=== PATIENT | female | born 1990 | race African-American/Black ===

== ENCOUNTER 2020-01-22 03:39 | Emergency (ER) | payer MEDICARE, OTHER ==
--- NOTE | 2020-01-22 07:57 | RAD ---
Exam: Chest one view HISTORY:Chest pain Comparison: 03/20/2019 FINDINGS: Cardiac silhouette: Normal Aorta: Unremarkable Pulmonary vessels: Normal Costophrenic angles: Clear LUNGS: No masses or consolidation. Pneumothorax: None Osseous abnormalities: None IMPRESSION: No acute cardiopulmonary process.
== END 2020-01-22 04:37 | disposition home or self-care (01) ==
LOC: ERS 03:39
DX: R07.9 Chest pain, unspecified (principal); D50.9 Iron deficiency anemia, unspecified; F41.9 Anxiety disorder, unspecified; F32.9 Major depressive disorder, single episode, unspecified; K50.90 Crohn's disease, unspecified, without complications; Y04.0XXA Assault by unarmed brawl or fight, initial encounter
CPT/HCPCS: 71045; 93005

== ENCOUNTER 2020-04-25 19:18 | Observation (INO) | payer MEDICARE, MEDICAID, OTHER ==
[~2020-04-25 19:18] MED LIST: Iopamidol-370 76% 500 ML 1 ML ONE
[2020-04-25] MEDS ORDERED: Haloperidol Lactate 5 MG/ML VIAL ONE ×3 (19:20→22:18)
[2020-04-25] MEDS ORDERED: Lorazepam 2 MG/ML VIAL ONE ×3 (19:20→23:59)
[2020-04-25] MEDS ORDERED: diphenhydrAMINE 50 MG/ML VIAL ONE (19:20)
[2020-04-25 19:34] LABS: #Basophils 0.1 thou/uL (0.0-0.2); #Eosinphils 0.1 thou/uL (0.0-0.7); #Lymphocytes 3.5 thou/uL (1.20-3.40); #Monocytes 1.4 thou/uL (0.11-0.59); #Neutrophils 5.5 thou/uL (1.40-6.50); %Eosinophils 1.1 % (0.0-10.0); %Lymphocytes 32.9 % (21.0-51.0); %Monocytes 13.1 % (0.0-10.0); %Neutrophils 51.9 % (42.0-75.0); Hemoglobin 11.4 g/dL (12.0-16.0); Mean Corpuscular HGB CONC 31.3 g/dL (32.0-36.0); Mean Corpuscular Hemoglobin 29.4 pg (27.0-31.0); Mean Corpuscular Volume 93.9 fL (78.0-98.0); Mean Platelet Volume 8.1 fL (7.4-10.4); Platelet Count 322 thou/uL (130-400); RBC Distribution Width 14.3 % (11.5-14.5); Red Blood Cell (RBC) Count 3.86 mill/uL (4.20-5.40); White Blood Cell (WBC) Count 10.7 thou/uL (4.8-10.8)
[2020-04-25 19:40] LABS: Albumin 3.6 g/dL (3.5-5.0)
[2020-04-25 19:41] LABS: Chloride 107 mmol/L (98-107); Potassium 3.7 mmol/L (3.5-5.1); Prothrombin Time 13.4 sec (12.0-14.7); Sodium 138 mmol/L (136-145)
[2020-04-25 19:42] LABS: Calcium 8.5 mg/dL (7.8-10.44)
[2020-04-25 19:43] LABS: Globulin 3.4 g/dL (2.4-3.5); Glucose 99 mg/dL (70-105)
[2020-04-25 19:44] LABS: Anion Gap 19 mmol/L (10-20); Bilirubin, Total 0.2 mg/dL (0.2-1.2); Carbon Dioxide 16 mmol/L (22-29)
[2020-04-25 19:46] LABS: Alkaline Phosphatase 64 U/L (40-110); Calc. Creatinine Clearance 0 mL/min (70-130); Estimated GFR-MDRD Greater than 90
[2020-04-25 19:47] LABS: BUN (Urea Nitrogen) 6 mg/dL (7.0-18.7)
[2020-04-25 19:48] LABS: AST (SGOT) 26 U/L (5-34)
[2020-04-25 19:49] LABS: ALT (SGPT) 13 U/L (8-55)
[2020-04-25 19:51] LABS: BHCG - Serum Negative (NEGATIVE); Pregs Control Background? CLEAR/WHITE (CLR/WHITE); Pregs Control Bar Appear? YES (CONTROL BAR)
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
[2020-04-25 20:19] LABS: Alcohol 106 mg/dL (Less than 10)
[2020-04-25 20:22] LABS: Acetaminophen Less than 6.0 mcg/mL (10.0-30.0); Salicylate Less than 8.0 mg/dL (15.0-30.0)
--- NOTE | 2020-04-25 20:36 | RAD ---
2 views right forearm: 04/25/2020 COMPARISON: None HISTORY: Injury, trauma, pain FINDINGS: There is soft tissue irregularity involving the volar aspect of the midforearm on the later al view suggesting laceration. Soft tissue irregularity is seen medially on the frontal view adjacent to the midshaft of the right ulna. No associated foreign body, fracture, or dislocation. IMPRESSION: Findings suggesting a soft tissue injury involving the volar medial aspect of the mid rig ht forearm.
[2020-04-25 20:52] LABS: Bacteria/HPF None Seen HPF (None Seen); Bilirubin Negative (Negative); Blood, Urine Negative (Negative); Clarity Clear (Clear); Glucose, Urine (Dipstick) Normal (Negative); Ketone, Urine Negative (Negative); Leukocyte Negative Leu/uL (Negative); Nitrite Negative (Negative); Protein, Urine (Dipstick) Negative (Neg-Trace); RBC/HPF 0-3 HPF (0-3); Specific Gravity, Urine 1.022 (1.002-1.036); Squamous Epithelial 0-3 HPF (0-3); Urobilinogen Normal mg/dL (Less than 2); WBC/HPF 0-3 HPF (0-3); pH, Urine 6.5 (5.0-9.0)
[2020-04-25 21:08] LABS: Amphetamine Not Detected (NotDetected); Barbiturates Screen Not Detected (NotDetected); Benzodiazepine Screen Not Detected (NotDetected); Cocaine Metabolite Screen Not Detected (NotDetected); Medtox Control Line Valid? VALID (VALID); Medtox Reader # READER 4; Methadone Not Detected (NotDetected); Methamphetamine Not Detected (NotDetected); Opiate Screen Not Detected (NotDetected); Oxycodone Screen Not Detected (NotDetected); Phencyclidine (PCP) Detected (NotDetected); THC/Cannabinoid Screen Detected (NotDetected); Tricyclic Screen Not Detected (NotDetected)
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
[2020-04-25] MEDS ORDERED: Boostrix 0.5 ML VIAL ONE (21:46)
[2020-04-25] MEDS ORDERED: Dextrose 5% in Water 1,000 ML IV PRN (22:32)
[2020-04-25] MEDS ORDERED: Dextrose 50% Abboject 50 ML SYRINGE SLOW IVP PRN (22:32)
[2020-04-25] MEDS ORDERED: Ondansetron PF 4 MG/2 ML Vial IVP PRN (22:32)
[2020-04-25] MEDS ORDERED: Lorazepam 2 MG/ML VIAL SLOW IVP PRN (22:32)
[2020-04-25 23:07] LABS: Lactic Acid 5.2 mmol/L (0.5-2.2)
[2020-04-26] MEDS ORDERED: Ziprasidone 20 MG VIAL IM SCH (01:00)
[2020-04-26 01:25] VITALS: BMI 20.2
[2020-04-26] MEDS: Acetaminophen 500 MG TAB PO SCH ×4 (01:55→23:45)
[2020-04-26] MEDS: Ketorolac Tromethamine 30 MG/ML VIAL IVP SCH ×5 (01:55→23:45)
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
[2020-04-26 10:55] LABS: Hemoglobin 10.6 g/dL (12.0-16.0); Mean Corpuscular HGB CONC 30.6 g/dL (32.0-36.0); Mean Corpuscular Hemoglobin 29.5 pg (27.0-31.0); Mean Corpuscular Volume 96.5 fL (78.0-98.0); Platelet Count 243 thou/uL (130-400); RBC Distribution Width 14.4 % (11.5-14.5)
[2020-04-26 10:56] LABS: #Basophils 0.1 thou/uL (0.0-0.2); #Eosinphils 0.1 thou/uL (0.0-0.7); #Monocytes 1.6 thou/uL (0.11-0.59); #Neutrophils 7.3 thou/uL (1.40-6.50); %Basophils 0.6 % (0.0-1.0); %Eosinophils 0.6 % (0.0-10.0); %Lymphocytes 17.7 % (21.0-51.0); %Monocytes 14.9 % (0.0-10.0); %Neutrophils 66.2 % (42.0-75.0); Manual Diff?? NO; Mean Platelet Volume 8.3 fL (7.4-10.4)
--- NOTE | 2020-04-26 11:17 | EKG ---
Test Reason : Blood Pressure : / mmHG Vent. Rate : 098 BPM Atrial Rate : 098 BPM P-R Int : 120 ms QRS Dur : 078 ms QT Int : 360 ms P-R-T Axes : 063 075 049 degrees QTc Int : 459 ms Normal sinus rhythm Nonspecific T wave abnormality Abnormal ECG Confirmed by JEFF MADDEN M.D. ([id number]) on 04/26/2020 11:17:32 AM Referred By: MAME Confirmed By:JEFF MADDEN M.D.
[2020-04-26] MEDS ORDERED: PHENYLEPHRINE-NS 100 MCG/ML 10 ML SYRINGE ONE (11:31)
[2020-04-26] MEDS ORDERED: Lidocaine 1% PF 5 ML VIAL ONE (11:31)
[2020-04-26] MEDS ORDERED: Ondansetron PF 4 MG/2 ML Vial ONE (11:31)
[2020-04-26] MEDS ORDERED: PROPOFOL 200 MG/20 ML VIAL ONE (11:31)
[2020-04-26] MEDS ORDERED: Dexamethasone 20 MG/5 ML VIAL ONE (11:31)
[2020-04-26 12:37] LABS: SARS-CoV-2 MS2 Positive; SARS-CoV-2 N Gene Negative; SARS-CoV-2 S Gene Negative; SARS-CoV-2 by NAA Not Detected (NotDetected); SARS-CoV-2 orf1ab Negative
[2020-04-26] MEDS ORDERED: Fentanyl 100 MCG/2 ML VIAL ONE (14:57)
[2020-04-26] MEDS ORDERED: Bupivacaine 0.25% HCL 30 ML VIAL ONE (14:59)
[2020-04-26] MEDS ORDERED: Lidocaine 1% w/Epinephrine 1:100K 20 ML VIAL ONE (14:59)
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
[2020-04-26] MEDS: Famotidine 20 MG TAB PO SCH ×2 (15:59→21:02)
[2020-04-26] MEDS: Lactated Ringer's 1,000 ML IV SCH ×2 (15:59→17:24)
[2020-04-26] MEDS ORDERED: Promethazine HCl 25 MG/ML VIAL IM PRN ×2 (17:40→17:43)
[2020-04-26] MEDS ORDERED: Ondansetron HCl/PF 4 MG/2 ML Vial IVP PRN ×2 (17:40→17:43)
[2020-04-26] MEDS ORDERED: Morphine Sulfate 2 MG/ML SYRINGE SLOW IVP PRN (17:40)
[2020-04-26] MEDS ORDERED: Promethazine HCl 25 MG/ML VIAL SLOW IVP PRN ×2 (17:40→17:43)
[2020-04-27] MEDS: Lactated Ringer's 1,000 ML IV SCH ×2 (01:59→09:10)
[2020-04-27 05:33] LABS: #Lymphocytes 1.1 thou/uL (1.20-3.40); #Monocytes 1.2 thou/uL (0.11-0.59); #Neutrophils 9.5 thou/uL (1.40-6.50); %Basophils 0.1 % (0.0-1.0); %Lymphocytes 9.5 % (21.0-51.0); %Monocytes 9.9 % (0.0-10.0); %Neutrophils 80.5 % (42.0-75.0); Hemoglobin 8.7 g/dL (12.0-16.0); Mean Corpuscular HGB CONC 31.4 g/dL (32.0-36.0); Mean Corpuscular Hemoglobin 29.3 pg (27.0-31.0); Mean Corpuscular Volume 93.3 fL (78.0-98.0); Mean Platelet Volume 8.2 fL (7.4-10.4); Platelet Count 236 thou/uL (130-400); RBC Distribution Width 14.3 % (11.5-14.5); Red Blood Cell (RBC) Count 2.97 mill/uL (4.20-5.40); White Blood Cell (WBC) Count 11.8 thou/uL (4.8-10.8)
[2020-04-27] MEDS: Ketorolac Tromethamine 30 MG/ML VIAL IVP SCH (05:57)
[2020-04-27] MEDS: traMADol HCl 50 MG TAB PO PRN ×2 (05:57→11:40)
[2020-04-27] MEDS: Acetaminophen 500 MG TAB PO SCH ×2 (05:57→11:40)
[2020-04-27 06:01] LABS: Anion Gap 11 mmol/L (10-20); BUN (Urea Nitrogen) 7 mg/dL (7.0-18.7); Calc. Creatinine Clearance 93 mL/min (70-130); Calcium 7.5 mg/dL (7.8-10.44); Carbon Dioxide 23 mmol/L (22-29); Chloride 106 mmol/L (98-107); Estimated GFR-MDRD Greater than 90; Glucose 113 mg/dL (70-105); Magnesium 1.7 mg/dL (1.6-2.6); Phosphorus 2.9 mg/dL (2.3-4.7); Potassium 3.6 mmol/L (3.5-5.1); Sodium 136 mmol/L (136-145)
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
[2020-04-27] MEDS ORDERED: Ibuprofen 600 MG TAB PO PRN (08:35)
[2020-04-27] MEDS: Famotidine 20 MG TAB PO SCH (08:59)
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
[2020-04-27 16:08] VITALS: BP 114/68; TEMP 97.5
== END 2020-04-27 16:35 | disposition home or self-care (01) ==
LOC: ERS 19:18 → SJJU 22:46
PROVIDERS: ADMIT Surgery; ATTEND Surgery
PROC: 03LB0ZZ Occlusion of Right Radial Artery, Open Approach (ICD-10-PCS; principal; 2020-04-25)
PROC: 0LQ50ZZ Repair Right Lower Arm and Wrist Tendon, Open Approach (ICD-10-PCS; 2020-04-25)
PROC: 0LQ50ZZ Repair Right Lower Arm and Wrist Tendon, Open Approach (ICD-10-PCS; 2020-04-25)
PROC: 0LQ50ZZ Repair Right Lower Arm and Wrist Tendon, Open Approach (ICD-10-PCS; 2020-04-25)
DX: S56.221A Laceration of other flexor muscle, fascia and tendon at forearm level, right arm, initial encounter (principal); S55.111A Laceration of radial artery at forearm level, right arm, initial encounter; F19.129 Other psychoactive substance abuse with intoxication, unspecified; K50.90 Crohn's disease, unspecified, without complications; Z79.2 Long term (current) use of antibiotics; Z90.49 Acquired absence of other specified parts of digestive tract; Z20.828 Contact with and (suspected) exposure to other viral communicable diseases; W22.8XXA Striking against or struck by other objects, initial encounter; V89.2XXA Person injured in unspecified motor-vehicle accident, traffic, initial encounter
CPT/HCPCS: 25260 ×3; 37618; 51701; 70450; 71260; 72125; 73090; 74177; 76000; 80048; 80306; 80307; 81001; 82962; 83605; 83735; 84100; 84703; 85025 ×2; 85610; 85730; 86850; 86900; 86901; 90471; 90715; 93005 ×2; 96361; 96365; 96372; 96375 ×2; 96376 ×3; 97139; 99285; G0378 ×3; U0003; 36415; 36416; 80053; 84443; 87635; 93010; J0690; J1100; J1200; J1630; J1885; J2060; J2405; J2704; J3010; Q9967; S0020

== ENCOUNTER 2020-05-14 23:29 | Emergency (ER) | payer MEDICARE, MEDICAID | END 2020-05-15 00:18 | disposition home or self-care (01) | LOC: ERS 23:29 | DX: F10.129 Alcohol abuse with intoxication, unspecified (principal); S51.811D Laceration without foreign body of right forearm, subsequent encounter; W22.8XXD Striking against or struck by other objects, subsequent encounter ==

== ENCOUNTER 2020-08-18 22:46 | Emergency (ER) | payer MEDICARE, MEDICAID ==
[2020-08-19 06:58] LABS: SARS-CoV-2 MS2 Positive; SARS-CoV-2 N Gene Negative; SARS-CoV-2 S Gene Negative; SARS-CoV-2 by NAA Not Detected (NotDetected); SARS-CoV-2 orf1ab Negative
== END 2020-08-18 23:45 | disposition home or self-care (01) ==
LOC: ERS 22:46
DX: Z20.822 Contact with and (suspected) exposure to COVID-19 (principal); F17.210 Nicotine dependence, cigarettes, uncomplicated
CPT/HCPCS: 99283; U0003; 87635

== ENCOUNTER 2021-01-17 19:20 | Emergency (ER) | payer MEDICARE, MEDICAID | END 2021-01-17 20:22 | LOC: ERS 19:20 | DX: F16.90 Hallucinogen use, unspecified, uncomplicated (principal); K50.90 Crohn's disease, unspecified, without complications; F17.210 Nicotine dependence, cigarettes, uncomplicated | CPT/HCPCS: 99284 ==

== ENCOUNTER 2022-02-01 06:54 | Emergency (ER) | payer MEDICAID, MEDICARE ==
[2022-02-01] MEDS ORDERED: diphenhydrAMINE 50 MG/ML VIAL ONE (08:19)
[2022-02-01] MEDS ORDERED: Metoclopramide HCl 10 MG/2 ML VIAL ONE (08:19)
[2022-02-01] MEDS ORDERED: Ketorolac Tromethamine 30 MG/ML VIAL ONE (08:19)
[2022-02-01] MEDS ORDERED: Acetaminophen 500 MG TAB ONE (09:44)
== END 2022-02-01 10:20 | disposition home or self-care (01) ==
LOC: ERS 06:54
DX: R51.9 Headache, unspecified (principal); F17.210 Nicotine dependence, cigarettes, uncomplicated
CPT/HCPCS: 96374; 96375; J1200; J1885; J2765

== ENCOUNTER 2022-03-21 13:26 | Emergency (ER) | payer MEDICARE, MEDICAID ==
[2022-03-21 14:11] LABS: #Eosinphils 0.2 thou/uL (0.0-0.7); #Lymphocytes 2.1 thou/uL (1.20-3.40); #Monocytes 0.5 thou/uL (0.11-0.59); #Neutrophils 2.9 thou/uL (1.40-6.50); %Basophils 0.2 % (0.0-1.0); %Eosinophils 2.6 % (0.0-10.0); %Lymphocytes 37.4 % (21.0-51.0); %Monocytes 8.9 % (0.0-10.0); %Neutrophils 50.9 % (42.0-75.0); Hemoglobin 12.1 g/dL (12.0-16.0); Mean Corpuscular HGB CONC 32.4 g/dL (32.0-36.0); Mean Corpuscular Hemoglobin 29.5 pg (27.0-31.0); Mean Corpuscular Volume 90.9 fL (78.0-98.0); Mean Platelet Volume 7.5 fL (7.4-10.4); Platelet Count 357 thou/uL (130-400); RBC Distribution Width 14.9 % (11.5-14.5); White Blood Cell (WBC) Count 5.7 thou/uL (4.8-10.8)
[2022-03-21 14:19] LABS: BHCG - Serum Negative (NEGATIVE); Pregs Control Background? CLEAR/WHITE (CLR/WHITE); Pregs Control Bar Appear? YES (CONTROL BAR)
[2022-03-21 14:35] LABS: Bilirubin Negative (Negative); Blood, Urine Negative (Negative); Clarity Clear (Clear); Glucose, Urine (Dipstick) Normal (Negative); Ketone, Urine Negative (Negative); Leukocyte Negative Leu/uL (Negative); Nitrite Negative (Negative); Protein, Urine (Dipstick) Negative (Neg-Trace); Specific Gravity, Urine 1.008 (1.002-1.036); Urobilinogen Normal mg/dL (Less than 2); pH, Urine 5.5 (5.0-9.0)
[2022-03-21 14:39] LABS: Acetaminophen Less than 10.0 mcg/mL (10.0-30.0); Alcohol 84 mg/dL (Less than 10); CK (CPK) 53 U/L (29-168); Salicylate Less than 8.0 mg/dL (15.0-30.0)
[2022-03-21 14:40] LABS: ALT (SGPT) 8 U/L (8-55); AST (SGOT) 17 U/L (5-34); Albumin 3.7 g/dL (3.5-5.0); Alkaline Phosphatase 72 U/L (40-110); Anion Gap 14 mmol/L (10-20); BUN (Urea Nitrogen) 9 mg/dL (7.0-18.7); Bilirubin, Total 0.2 mg/dL (0.2-1.2); Calc. Creatinine Clearance 0 mL/min (70-130); Calcium 9.1 mg/dL (7.8-10.44); Carbon Dioxide 20 mmol/L (22-29); Chloride 106 mmol/L (98-107); Estimated GFR 103; Globulin 3.5 g/dL (2.4-3.5); Glucose 60 mg/dL (70-105); Potassium 3.1 mmol/L (3.5-5.1); Protein, Total 7.2 g/dL (6.0-8.3); Sodium 137 mmol/L (136-145)
[2022-03-21 14:41] LABS: Pregnancy Test - Urine (BHCG) Negative (Negative); Pregu Control Background? CLEAR/WHITE (CLR/WHITE); Pregu Control Bar Appear? YES (CONTROL BAR); Specific Gravity 1.008 (1.002-1.036)
[2022-03-21 14:51] LABS: Amphetamine Detected (NotDetected); Barbiturates Screen Not Detected (NotDetected); Benzodiazepine Screen Not Detected (NotDetected); Cocaine Metabolite Screen Not Detected (NotDetected); Methadone Not Detected (NotDetected); Methamphetamine Detected (NotDetected); Opiate Screen Not Detected (NotDetected); Oxycodone Screen Not Detected (NotDetected); Phencyclidine (PCP) Detected (NotDetected); THC/Cannabinoid Screen Detected (NotDetected); Tricyclic Screen Not Detected (NotDetected)
== END 2022-03-21 16:04 | disposition home or self-care (01) ==
LOC: ERS 13:26
DX: F10.129 Alcohol abuse with intoxication, unspecified (principal); Y90.4 Blood alcohol level of 80-99 mg/100 ml; F12.10 Cannabis abuse, uncomplicated; F16.10 Hallucinogen abuse, uncomplicated; F15.10 Other stimulant abuse, uncomplicated; R41.82 Altered mental status, unspecified; K50.90 Crohn's disease, unspecified, without complications; F17.210 Nicotine dependence, cigarettes, uncomplicated
CPT/HCPCS: 36415; 51701; 80053; 80306; 80307; 81003; 81025; 82550; 84703; 85025; 93005

== ENCOUNTER 2022-04-13 23:18 | Emergency (ER) | payer MEDICARE, OTHER ==
[2022-04-14 01:00] LABS: #Basophils 0.1 thou/uL (0.0-0.2); #Eosinphils 0.1 thou/uL (0.0-0.7); #Monocytes 0.9 thou/uL (0.11-0.59); #Neutrophils 4.6 thou/uL (1.40-6.50); %Basophils 0.8 % (0.0-1.0); %Eosinophils 1.8 % (0.0-10.0); %Lymphocytes 26.2 % (21.0-51.0); %Neutrophils 59.2 % (42.0-75.0); Hemoglobin 11.8 g/dL (12.0-16.0); Mean Corpuscular Hemoglobin 29.9 pg (27.0-31.0); Mean Corpuscular Volume 90.5 fL (78.0-98.0); Mean Platelet Volume 7.8 fL (7.4-10.4); Platelet Count 328 thou/uL (130-400); RBC Distribution Width 14.3 % (11.5-14.5); Red Blood Cell (RBC) Count 3.93 mill/uL (4.20-5.40); White Blood Cell (WBC) Count 7.8 thou/uL (4.8-10.8)
[2022-04-14 01:04] LABS: BHCG - Serum Negative (NEGATIVE); Pregs Control Background? CLEAR/WHITE (CLR/WHITE); Pregs Control Bar Appear? YES (CONTROL BAR)
[2022-04-14 01:22] LABS: Acetaminophen Less than 10.0 mcg/mL (10.0-30.0); Alcohol 14 mg/dL (Less than 10); CK (CPK) 131 U/L (29-168); Magnesium 1.8 mg/dL (1.6-2.6); Salicylate Less than 8.0 mg/dL (15.0-30.0)
[2022-04-14 01:24] LABS: ALT (SGPT) 11 U/L (8-55); AST (SGOT) 18 U/L (5-34); Albumin 3.8 g/dL (3.5-5.0); Alkaline Phosphatase 67 U/L (40-110); Anion Gap 17 mmol/L (10-20); BUN (Urea Nitrogen) 13 mg/dL (7.0-18.7); Bilirubin, Total 0.4 mg/dL (0.2-1.2); Calc. Creatinine Clearance 0 mL/min (70-130); Carbon Dioxide 22 mmol/L (22-29); Chloride 104 mmol/L (98-107); Estimated GFR 83; Globulin 3.5 g/dL (2.4-3.5); Glucose 85 mg/dL (70-105); Lipase 23 U/L (8-78); Potassium 3.7 mmol/L (3.5-5.1); Protein, Total 7.3 g/dL (6.0-8.3); Sodium 139 mmol/L (136-145)
== END 2022-04-14 07:25 | disposition home or self-care (01) ==
LOC: ERS 23:18
DX: F19.10 Other psychoactive substance abuse, uncomplicated (principal); F17.210 Nicotine dependence, cigarettes, uncomplicated
CPT/HCPCS: 70450; 71045; 80053; 80307; 82550; 83690; 83735; 83880; 84443; 84484; 84703; 85025; 93005

== ENCOUNTER 2022-05-22 12:24 | Emergency (ER) | payer MEDICARE, OTHER ==
[2022-05-22 13:37] LABS: #Eosinphils 0.1 thou/uL (0.0-0.7); #Lymphocytes 1.6 thou/uL (1.20-3.40); #Monocytes 0.7 thou/uL (0.11-0.59); #Neutrophils 2.7 thou/uL (1.40-6.50); %Basophils 0.5 % (0.0-1.0); %Eosinophils 1.7 % (0.0-10.0); %Lymphocytes 31.8 % (21.0-51.0); %Monocytes 13.3 % (0.0-10.0); %Neutrophils 52.7 % (42.0-75.0); Hemoglobin 10.4 g/dL (12.0-16.0); Mean Corpuscular HGB CONC 30.8 g/dL (32.0-36.0); Mean Corpuscular Hemoglobin 28.6 pg (27.0-31.0); Mean Corpuscular Volume 92.6 fL (78.0-98.0); Mean Platelet Volume 7.4 fL (7.4-10.4); Platelet Count 344 thou/uL (130-400); RBC Distribution Width 13.2 % (11.5-14.5); Red Blood Cell (RBC) Count 3.65 mill/uL (4.20-5.40); White Blood Cell (WBC) Count 5.1 thou/uL (4.8-10.8)
[2022-05-22 13:45] LABS: ALT (SGPT) 7 U/L (8-55); AST (SGOT) 15 U/L (5-34); Alcohol Less than 10 mg/dL (Less than 10); Alkaline Phosphatase 64 U/L (40-110); Anion Gap 10 mmol/L (10-20); BUN (Urea Nitrogen) 8 mg/dL (7.0-18.7); Bilirubin, Total 0.2 mg/dL (0.2-1.2); CK (CPK) 46 U/L (29-168); Calc. Creatinine Clearance 0 mL/min (70-130); Calcium 8.3 mg/dL (7.8-10.44); Carbon Dioxide 28 mmol/L (22-29); Chloride 108 mmol/L (98-107); Estimated GFR 118; Glucose 86 mg/dL (70-105); Potassium 3.9 mmol/L (3.5-5.1); Sodium 142 mmol/L (136-145)
[2022-05-22 13:46] LABS: Acetaminophen Less than 10.0 mcg/mL (10.0-30.0); Alcohol Less than 10 mg/dL (Less than 10); Salicylate Less than 8.0 mg/dL (15.0-30.0)
[2022-05-22 14:47] LABS: Bilirubin Negative (Negative); Blood, Urine Negative (Negative); Clarity Clear (Clear); Glucose, Urine (Dipstick) Normal (Negative); Ketone, Urine Negative (Negative); Leukocyte Negative Leu/uL (Negative); Nitrite Negative (Negative); Protein, Urine (Dipstick) 10 mg/dL (Neg-Trace); Specific Gravity, Urine 1.027 (1.002-1.036); Urobilinogen Normal mg/dL (Less than 2)
[2022-05-22 14:50] LABS: Pregnancy Test - Urine (BHCG) Negative (Negative)
[2022-05-22 14:51] LABS: Pregu Control Background? CLEAR/WHITE (CLR/WHITE); Pregu Control Bar Appear? YES (CONTROL BAR); Specific Gravity 1.027 (1.002-1.036)
[2022-05-22 14:58] LABS: Amphetamine Detected (NotDetected); Barbiturates Screen Not Detected (NotDetected); Benzodiazepine Screen Not Detected (NotDetected); Cocaine Metabolite Screen Not Detected (NotDetected); Methadone Not Detected (NotDetected); Methamphetamine Detected (NotDetected); Opiate Screen Not Detected (NotDetected); Oxycodone Screen Not Detected (NotDetected); Phencyclidine (PCP) Detected (NotDetected); THC/Cannabinoid Screen Detected (NotDetected); Tricyclic Screen Not Detected (NotDetected)
[2022-05-22] MEDS ORDERED: Ketorolac Tromethamine 30 MG/ML VIAL ONE (18:54)
== END 2022-05-22 19:22 ==
LOC: ERS 12:24
DX: R51.9 Headache, unspecified (principal); R45.851 Suicidal ideations; F15.10 Other stimulant abuse, uncomplicated; F17.210 Nicotine dependence, cigarettes, uncomplicated; W22.8XXA Striking against or struck by other objects, initial encounter
CPT/HCPCS: 36415; 80053; 80306; 80307; 81003; 81025; 82550; 84439; 84443; 85025; 93005; 96372; J1885

== ENCOUNTER 2022-06-03 03:11 | Emergency (ER) | payer MEDICARE, OTHER, MEDICAID | END 2022-06-03 04:22 | LOC: ERS 03:11 | DX: I10 Essential (primary) hypertension (principal); F17.210 Nicotine dependence, cigarettes, uncomplicated | CPT/HCPCS: 99283 ==

== ENCOUNTER 2022-06-15 02:44 | Emergency (ER) | payer MEDICARE, OTHER ==
[2022-06-15] MEDS ORDERED: Ketorolac Tromethamine 30 MG/ML VIAL ONE (03:08)
== END 2022-06-15 04:16 | disposition home or self-care (01) ==
LOC: ERS 02:44
DX: M79.604 Pain in right leg (principal); F17.210 Nicotine dependence, cigarettes, uncomplicated
CPT/HCPCS: 36416; 93005; 96372; J1885

== ENCOUNTER 2025-03-12 16:04 | Emergency (ER) | payer MEDICARE, OTHER, SELFPAY ==
[2025-03-12] MEDS ORDERED: Acetaminophen 500 MG TAB ONE (17:12)
== END 2025-03-12 17:15 | disposition home or self-care (01) ==
LOC: ERS 16:04
DX: T19.2XXA Foreign body in vulva and vagina, initial encounter (principal)
CPT/HCPCS: 99283